=== PATIENT | male | born 1990 | race Caucasian/White ===

== ENCOUNTER 2019-03-15 07:40 | Emergency (ER) | payer BC ==
[~2019-03-15] VITALS: Ht 177.8 cm; Wt 97.5 kg
[2019-03-15 07:48] VITALS: BP 155/88
--- NOTE | 2019-03-15 09:21 | PHYS DOC ---
Past Medical History Past Medical History: No Pertinent History Past Surgical History: Other Additional Past Surgical Histo: WISDOM TEETH Alcohol Use: Occasionally Drug Use: None Adult General Chief Complaint Chief Complaint: INSECT BITE HPI HPI Patient is a 28 year old male who presents with suspected spider bite under her left arm. Patient states he woke with pain tenderness itching to his extensor surface of his left proximal arm. Patient reports body aches and malaise. Denies fever chills sweats. States he had similar symptoms with previous spider bites. On exam, there is an 8 cm circumferential area of the extensor surface left proximal arm. There is minimal induration this central puncture wound with clear serous drainage. Wound is tender to palpation without desquamation. There is no streaking or fluctuance. [] Review of Systems Review of Systems His symptoms as per history of present illness. All other review symptoms are negative. All other systems were reviewed and found to be within normal limits, except as documented in this note. Physical Exam Physical Exam Constitutional: Well developed, well nourished, no acute distress, non-toxic appearance. [] HENT: Normocephalic, atraumatic, bilateral external ears normal, oropharynx moist, nose normal. [] Eyes: PERRLA, EOMI, conjunctiva normal, no discharge. [] Neck: Normal range of motion, no tenderness. [] Cardiovascular:Heart rate regular rhythm, no murmur [] Lungs & Thorax: Bilateral breath sounds clear to auscultation [] Extremities: Left upper extremity,8 cm circumferential area of the extensor surface left proximal arm. There is minimal induration this central puncture wound with clear serous drainage. Wound is tender to palpation without desquamation. There is no streaking or fluctuance.[] Neurologic: Alert and oriented X 3, normal motor function, normal sensory function, no focal deficits noted. [] Psychologic: Affect normal, judgement normal, mood normal. [] Current Patient Data Vital Signs Vital Signs Date Time Temp Pulse Resp B/P (MAP) Pulse Ox O2 Delivery O2 Flow Rate FiO2 03/15/19 07:48 98.7 78 16 155/88 (110) 95 Room Air 98.7 EKG EKG [] Radiology/Procedures Radiology/Procedures [] Course & Med Decision Making Course & Med Decision Making Pertinent Labs and Imaging studies reviewed. (See chart for details) [Symptoms consistent with suspected spider bite. Recommendations are for supportive care, watchful waiting and PCP follow-up. Return precautions reviewed. Patient verbalizes understanding and agreement discharge instructions prior to departure.] Dragon Disclaimer Dragon Disclaimer This electronic medical record was generated, in whole or in part, using a voice recognition dictation system. Departure Departure Impression: Primary Impression: Insect bite Disposition: HOME, SELF-CARE Condition: GOOD Patient Instructions: Spider Bite, [id number] Additional Instructions: You were evaluated in the ED for left arm sweling and redness. Your symptoms are consistent with a spider bite. Take 600 mg of ibuprofen for pain and benadryl as needed for itching. Follow up with your PCP for re-evaluation in 5- 7 days. Return to the ED if new or worsening symptoms. CRYSTAL ALMANZA DO Mar 15, 2019 09:21
== END 2019-03-15 09:07 | disposition home or self-care (01) ==
LOC: ER 07:40
DX: S40.862A Insect bite (nonvenomous) of left upper arm, initial encounter (principal); Z98.890 Other specified postprocedural states; W57.XXXA Bitten or stung by nonvenomous insect and other nonvenomous arthropods, initial encounter; Y93.89 Activity, other specified; Y92.89 Other specified places as the place of occurrence of the external cause; Y99.8 Other external cause status
CPT/HCPCS: 99281